=== PATIENT | male | born 1985 | race Caucasian/White ===

== ENCOUNTER 2017-04-18 09:53 | Emergency (ER) | payer BC ==
[2017-04-18] MEDS ORDERED: Ondansetron INJ* 2 MG/ML VIAL IV ONE (11:43)
[2017-04-18] MEDS ORDERED: NS 0.9% 1000 ML* 1,000 ML IV ONE (11:44)
[2017-04-18] MEDS ORDERED: Acetaminophen TAB* 325 MG PO ONE (11:45)
--- NOTE | 2017-04-18 11:48 | UC ---
UC General HPI - HPI Summary HPI Summary: Patient has muscle aches, back pain, leg pain, vomiting, cant keep anything down. Fever Sore throat, FIELD for the past 4 days - History of Current Complaint Chief Complaint: UCGeneralIllness Stated Complaint: SORE THROAT, VOMITING, ACHY Time Seen by Provider: 04/18/17 11:31 Hx Obtained From: Patient Onset/Duration: Sudden Onset, Lasting Days Onset Severity: Moderate Current Severity: Severe Pain Intensity: 6 Associated Signs & Symptoms: Positive: Back Pain, Decreased Oral Intake, Fever, Headache, Vomiting, Weakness - Allergy/Home Medications Allergies/Adverse Reactions: Allergies Allergy/AdvReac Type Severity Reaction Status Date / Time clavulanic acid Allergy Rash Verified 04/18/17 11:16 Home Medications: Home Medications Dm/PE/Acetaminophen/Doxylamine [Vicks Dayquil-Nyquil Cold-Flu] 30 ml PO Q6H PRN 04/18/17 [History Confirmed 04/18/17] Ibuprofen TAB* [Advil TAB*] 200 mg PO Q6H PRN 04/18/17 [History Confirmed ] PMH/Surg Hx/FS Hx/Imm Hx Previously Healthy: Yes - Surgical History Surgical History: None - Family History Known Family History: Negative: Cardiac Disease, Hypertension - Social History Alcohol Use: Occasionally Substance Use Type: None Smoking Status (MU): Never Smoked Tobacco Review of Systems Constitutional: Fever, Chills, Fatigue Skin: Negative Eyes: Negative ENT: Sore Throat Respiratory: Cough Cardiovascular: Negative Gastrointestinal: Vomiting, Nausea Genitourinary: Negative Motor: Negative Neurovascular: Negative Musculoskeletal: Arthralgia, Myalgia Neurological: Headache Psychological: Negative Is Patient Immunocompromised?: No All Other Systems Reviewed And Are Negative: Yes Physical Exam Triage Information Reviewed: Yes Appearance: Well-Nourished, Ill-Appearing, Pain Distress Vital Signs: Initial Vital Signs Temp 101.6 F 04/18/17 11:10 Pulse 108 04/18/17 11:10 Resp 18 04/18/17 11:10 BP 135/83 04/18/17 11:10 Pulse Ox 99 04/18/17 11:10 Vital Signs Reviewed: Yes Eye Exam: Normal ENT: Positive: Pharyngeal erythema, TMs normal Dental Exam: Normal Neck exam: Normal Neck: Positive: Supple, Nontender, No Lymphadenopathy Respiratory Exam: Normal Respiratory: Positive: Chest non-tender, Normal breath sounds, No respiratory distress, No accessory muscle use, Wheezing, Inspiration Cardiovascular Exam: Normal Cardiovascular: Positive: No Murmur, Pulses Normal, Tachycardia Abdominal Exam: Normal Abdomen Description: Positive: Nontender, No Organomegaly, Soft, CVA Tenderness (R) - neg, CVA Tenderness (L) - neg Bowel Sounds: Positive: Present Musculoskeletal Exam: Normal Musculoskeletal: Positive: Strength Intact, ROM Intact, No Edema, Other: - tender to touch all over Neurological Exam: Normal Neurological: Positive: Alert, Muscle Tone Normal Psychological Exam: Normal Skin Exam: Normal Course/Dx - Course Course Of Treatment: hx obtained, exam performed, meds reviewed, given a liter of fluids with zofran, APAP, positive for flu A - Differential Dx - Multi-Symptom Differential Diagnoses: Other - Strep pharyngitis sepsis gastroenteritis Provider Diagnoses: influenza A Discharge - Discharge Plan Condition: Stable Disposition: HOME Patient Education Materials: Influenza (ED) Forms: *Work Release Referrals: MUSA Cali [Primary Care Provider] - Additional Instructions: 1. take the zofran to stop the nausea 2. Increase fluid intake and eat only as tolerated 3. Get plenty of rest, continue with tylenol and Ibuprofen for pain and fever. 4. Follow up with any severe respiratory symptoms, uncontrollable fever or lethargy.
== END 2017-04-18 12:51 | disposition home or self-care (01) ==
LOC: UCCORT 09:53
DX: J09.X2 Influenza due to identified novel influenza A virus with other respiratory manifestations (principal); Z72.89 Other problems related to lifestyle
CPT/HCPCS: 81003; 87502; 87651; 96360; 96374; 99202; A9270-GY; G0463; J2405

== ENCOUNTER 2017-06-03 15:08 | Emergency (ER) | payer BC ==
[2017-06-03] MEDS ORDERED: Acetaminophen TAB* 325 MG PO ONE (16:20)
[2017-06-03] MEDS ORDERED: Ondansetron ODT TAB* 4 MG PO ONE (16:24)
--- NOTE | 2017-06-03 16:33 | UC ---
Abdominal Pain Male HPI - HPI Summary HPI Summary: He denies pain but he has vomiting, fever, achiness starting yesterday. No prior abd surgery. No diarrhea or blood in stool. - History of Current Complaint Chief Complaint: UCGeneralIllness Stated Complaint: FLU SX'S Time Seen by Provider: 06/03/17 16:09 Hx Obtained From: Patient Onset/Duration: Gradual Onset, Lasting Days Timing: Constant Severity Initially: Moderate Severity Currently: Moderate - Nausea. Pain Intensity: 8 Character: Other - No pain only nausea. Aggravating Factor(s): Food Alleviating Factor(s): Nothing Associated Signs And Symptoms: Positive: Fever, Decreased Appetite, Nausea, Vomiting. Negative: Constipation, Blood in Stool, Urinary Symptoms, Diarrhea - Allergies/Home Medications Allergies/Adverse Reactions: Allergies Allergy/AdvReac Type Severity Reaction Status Date / Time clavulanic acid Allergy Rash Verified 06/03/17 16:15 PMH/Surg Hx/FS Hx/Imm Hx Previously Healthy: No - Surgical History Surgical History: None - Family History Known Family History: Negative: Cardiac Disease, Hypertension - Social History Occupation: Employed Full-time Alcohol Use: Occasionally Substance Use Type: None Smoking Status (MU): Never Smoked Tobacco Review of Systems Constitutional: Fever, Chills Gastrointestinal: Vomiting, Nausea Musculoskeletal: Myalgia All Other Systems Reviewed And Are Negative: Yes Physical Exam Triage Information Reviewed: Yes Appearance: Well-Appearing, No Pain Distress, Well-Nourished Vital Signs: Initial Vital Signs Temp 103.3 F 06/03/17 16:11 Pulse 113 06/03/17 16:11 Resp 16 06/03/17 16:11 BP 143/88 06/03/17 16:11 Pulse Ox 96 06/03/17 16:11 Vital Signs Reviewed: Yes Eyes: Positive: Conjunctiva Clear ENT: Positive: Pharynx normal, TMs normal. Negative: Nasal congestion Neck: Positive: Supple, Nontender, No Lymphadenopathy. Negative: Nuchal Rigidity Respiratory: Positive: Normal breath sounds, No respiratory distress, No accessory muscle use. Negative: Respiratory distress, Decreased breath sounds, Accessory muscle use, Crackles, Rhonchi, Stridor, Wheezing Cardiovascular: Positive: No Murmur Abdomen Description: Positive: Nontender, No Organomegaly, Soft. Negative: CVA Tenderness (R), CVA Tenderness (L), Distended, Guarding Musculoskeletal: Positive: Strength Intact, ROM Intact, No Edema Neurological: Positive: Alert, Muscle Tone Normal. Negative: Fatigued Psychological: Positive: Age Appropriate Behavior Skin: Negative: rashes Abd Pain Male Course/Dx - Differential Dx/Clinical Impression Provider Diagnoses: Vomiting. viral illness. Discharge - Sign-Out/Discharge Documenting (check all that apply): Discharge - Discharge Plan Condition: Good Disposition: HOME Prescriptions: Ondansetron ODT TAB* [Zofran 4 MG Odt TAB*] 4 mg PO Q6H PRN #12 tab.odt PRN Reason: Vomiting Patient Education Materials: Acute Nausea and Vomiting (ED) Forms: *Work Release Referrals: MUSA Cali [Primary Care Provider] - - Billing Disposition and Condition Condition: GOOD Disposition: HOME
== END 2017-06-03 16:42 | disposition home or self-care (01) ==
LOC: UCCORT 15:08
DX: R11.11 Vomiting without nausea (principal); B34.9 Viral infection, unspecified; Z88.8 Allergy status to other drugs, medicaments and biological substances
CPT/HCPCS: 87502; 99212; A9270-GY; G0463

== ENCOUNTER 2019-01-16 07:16 | Emergency (ER) | payer BC ==
[2019-01-16 07:34] VITALS: BP 138/85
[2019-01-16] MEDS ORDERED: Tetan/Diph/Pertus SYR(Tdap)* 0.5 ML SYR(BOOSTRIX) use SYR contains LATEX IM ONE (08:14)
--- NOTE | 2019-01-16 08:16 | UC ---
Hand/Wrist HPI - HPI Summary HPI Summary: left index finger bite and left middle finger scratched by his cat 4 days ago at the vet while the cat was getting his vaccines-- today has decrease rom and swelling in left index finger--no streaking minimal erythema - History Of Current Complaint Chief Complaint: UCBiteInjury Stated Complaint: CAT BITE Time Seen by Provider: 01/16/19 08:09 Hx Obtained From: Patient ?: No Mechanism Of Injury: cat bite left index finger Onset/Duration: Sudden Onset, Lasting Days - 3 days ago Pain Intensity: 3 Pain Scale Used: 0-10 Numeric Character Of Pain: Aching, Throbbing Aggravating Factor(s): Movement Alleviating Factor(s): Rest Associated Signs And Symptoms: Positive: Swelling, Redness. Negative: Fever, Numbness/Tingling - Allergies/Home Medications Allergies/Adverse Reactions: Allergies Allergy/AdvReac Type Severity Reaction Status Date / Time clavulanic acid Allergy Rash Verified 01/16/19 07:29 PMH/Surg Hx/FS Hx/Imm Hx Previously Healthy: Yes - Surgical History Surgical History: None - Family History Known Family History: Negative: Cardiac Disease, Hypertension - Social History Occupation: Employed Full-time Lives: With Family Alcohol Use: Occasionally Substance Use Type: None Smoking Status (MU): Never Smoked Tobacco - Immunization History Most Recent Tetanus Shot: unknown Review of Systems All Other Systems Reviewed And Are Negative: Yes Constitutional: Positive: Negative Skin: Positive: Other - pw left index finger Eyes: Positive: Negative ENT: Positive: Negative Respiratory: Positive: Negative Cardiovascular: Positive: Negative Gastrointestinal: Positive: Negative Genitourinary: Positive: Negative Motor: Positive: Negative Neurovascular: Positive: Negative Musculoskeletal: Positive: Edema - left index finger Neurological: Positive: Negative Psychological: Positive: Negative Is Patient Immunocompromised?: No Physical Exam Triage Information Reviewed: Yes Appearance: Well-Appearing, No Pain Distress, Well-Nourished Vital Signs: Initial Vital Signs Temp 98 F 01/16/19 07:30 Pulse 81 01/16/19 07:30 Resp 16 01/16/19 07:30 BP 138/85 01/16/19 07:30 Pulse Ox 99 01/16/19 07:30 Vital Signs Reviewed: Yes Eye Exam: Normal Eyes: Positive: Conjunctiva Clear ENT Exam: Normal ENT: Positive: Normal ENT inspection, Hearing grossly normal. Negative: Trismus , Muffled voice, Hoarse voice Dental Exam: Normal Neck exam: Normal Neck: Positive: Supple, Nontender Respiratory Exam: Normal Respiratory: Positive: Chest non-tender, Normal breath sounds, No respiratory distress, No accessory muscle use Cardiovascular Exam: Normal Cardiovascular: Positive: RRR, Pulses Normal, Brisk Capillary Refill Musculoskeletal Exam: Other Musculoskeletal: Positive: Strength Intact, ROM Limited @ - left index finger, Edema @ - left index finger Neurological Exam: Normal Neurological: Positive: Alert, Muscle Tone Normal Psychological Exam: Normal Skin: Positive: Other - pw left index finger and scratches left midlle finger Hand/Wrist Course/Dx - Course Course Of Treatment: up date tetanus, splint finger dox for [address] Meyer, warm soaks /compress - Differential Dx/Diagnosis Provider Diagnosis: Cat bite of finger, Not up to date with diphtheria-tetanus vaccination Discharge ED - Sign-Out/Discharge Documenting (check all that apply): Patient Departure All imaging exams completed and their final reports reviewed: No Studies - Discharge Plan Condition: Stable Disposition: HOME Prescriptions: DOXYcycline CAP(*) [DOXYcycline 100MG CAP(*)] 100 mg PO BID #20 cap Patient Education Materials: Animal Bite (ED), Warm Compress or Soak (ED) Forms: *Work Release Referrals: Meena Meyer MD [Medical Doctor] - 3 Days - Billing Disposition and Condition Condition: STABLE Disposition: Home
== END 2019-01-16 08:30 | disposition home or self-care (01) ==
LOC: UCCORT 07:16
DX: S61.251A Open bite of left index finger without damage to nail, initial encounter (principal); Z23 Encounter for immunization; Z88.0 Allergy status to penicillin; W55.01XA Bitten by cat, initial encounter; S60.473A Other superficial bite of left middle finger, initial encounter; W55.03XA Scratched by cat, initial encounter; Y92.9 Unspecified place or not applicable
CPT/HCPCS: 90715; 96372; 99212; G0463

== ENCOUNTER 2019-03-03 17:00 | Emergency (ER) | payer BC ==
--- OUTSIDE RECORDS SUMMARY | 2019-03-03 17:11 | XMS REPORT | Continuity of Care Document ---
:1985 External Reference #:[id number] Author Name Meena Meyer M.D. (transmitted by agent of provider Carmen Kumar) Address [address] [place] [id number] Care Team Providers Name Role Phone Patient's Choice Care Team Information Clinical Documentation Specialist Unavailable Problems Description No Information Available Social History Type Date Description Comments Sex Unknown ETOH Use Occasionally consumes alcohol Tobacco Use Start: Unknown Patient has never smoked Smoking Status Reviewed: 01/19/19 Patient has never smoked Exercise Type/Frequency Exercises sporadically Allergies, Adverse Reactions, Alerts Active Allergies Reaction Severity Comments Date Amoxicillin 01/19/2019 Medications Active Medications SIG Qnty Indications Ordering Provider Date Doxycycline Unknown Immunizations Description No Information Available Vital Signs Date Vital Result Comment 01/19/2019 2:25pm Height 70.5 inches 5'10.50" Weight 228.00 lb Heart Rate 84 /min BP Systolic 140 mmHg BP Diastolic 90 mmHg Body Temperature 98.2 F BMI (Body Mass Index) 32.2 kg/m2 Results Description No Information Available Procedures Description No Information Available Medical Devices Description No Information Available Encounters Description No Information Available Assessments Date Code Description Provider 01/19/2019 W55.01xA Bitten by cat, initial encounter Meena Meyer M.D. Plan of Treatment 01/19/2019 - Meena Meyer M.D.W55.01xA Bitten by cat, initial encounterFollow up:Follow up: As needed Functional Status Description No Information Available Mental Status Description No Information Available Referrals Description No Information Available
--- NOTE | 2019-03-03 17:16 | UC ---
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 He is concerned about progressive symptoms and comes for a check. Missed Thursday and Thursday at work and would like some guidance. - History of Current Complaint Stated Complaint: CONGESTION/ST/COUGH/SOB Time Seen by Provider: 03/03/19 17:14 Hx Obtained From: Patient Onset/Duration: Gradual Onset, Lasting Days - 4 Severity: Moderate Cough: Nonproductive Associated Signs & Symptoms: Positive: Fever, Vomiting - last was 2 days ago.. Negative: Dysphagia, Wheezing, Hoarseness, Sinus Discomfort - Epiglottits Risk Factors Epiglottis Risk Factors: Negative - Allergies/Home Medications Allergies/Adverse Reactions: Allergies Allergy/AdvReac Type Severity Reaction Status Date / Time clavulanic acid Allergy Rash Verified 03/03/19 17:11 PMH/Surg Hx/FS Hx/Imm Hx Previously Healthy: Yes - Surgical History Surgical History: None - Family History Known Family History: Positive: Hypertension - Social History Occupation: Employed Full-time Lives: With Family Alcohol Use: Occasionally Substance Use Type: None Smoking Status (MU): Never Smoked Tobacco - Immunization History Most Recent Tetanus Shot: unknown Review of Systems All Other Systems Reviewed And Are Negative: Yes Constitutional: Positive: Fever, Chills Skin: Positive: Rash - truncal rash occurs every winter due to cold and dryness. ENT: Positive: Sore Throat Respiratory: Positive: Cough Cardiovascular: Positive: Negative. Negative: Palpitations, Chest Pain Gastrointestinal: Positive: Negative Genitourinary: Positive: Negative Motor: Positive: Negative Neurovascular: Positive: Negative Musculoskeletal: Positive: Myalgia Neurological: Positive: Headache - mild Psychological: Positive: Negative Is Patient Immunocompromised?: No Physical Exam Triage Information Reviewed: Yes Appearance: Ill-Appearing - looks mildly unwell ENT: Positive: Pharyngeal erythema, Tonsillar swelling - very mild. Negative: Tonsillar exudate Dental Exam: Normal Neck exam: Normal Neck: Positive: Supple, Nontender, No Lymphadenopathy Respiratory: Positive: Lungs clear, Normal breath sounds Cardiovascular: Positive: RRR, No Murmur Abdomen Description: Positive: Nontender, No Organomegaly, Soft Musculoskeletal Exam: Normal Neurological Exam: Normal Psychological Exam: Normal Skin Exam: Normal Throat Pain/Nasal Course/Dx - Course Course Of Treatment: continue symptomatic treatment of viral illness. - Differential Dx/Diagnosis Differential Diagnosis/HQI/PQRI: Influenza, Other - viral syndrome Provider Diagnosis: Viral syndrome Discharge ED - Sign-Out/Discharge Documenting (check all that apply): Patient Departure All imaging exams completed and their final reports reviewed: No Studies - Discharge Plan Condition: Stable Disposition: HOME Patient Education Materials: Viral Syndrome (ED) Forms: *Work Release Referrals: No Primary Care Phys,NOPCP [Primary Care Provider] - Additional Instructions: Continue rest and symptomatic treatment of viral illness. Use ibuprofen 600mg for relief of aches, taking it every 6 hours as needed. Continue high intake of fluids. - Billing Disposition and Condition Condition: STABLE Disposition: Home
[2019-03-03 17:19] VITALS: BP 139/85
== END 2019-03-03 18:01 | disposition home or self-care (01) ==
LOC: UCCORT 17:00
DX: B34.9 Viral infection, unspecified (principal); R05 Cough; R53.81 Other malaise; R11.10 Vomiting, unspecified; R51 Headache; J02.9 Acute pharyngitis, unspecified; Z88.0 Allergy status to penicillin
CPT/HCPCS: 99211; G0463